=== PATIENT | female | born 1995 | race Caucasian/White ===

== ENCOUNTER 2020-01-17 04:33 | Inpatient (IN) | payer BC ==
[2020-01-17] MEDS: LACTATED RINGERS 1,000 ML IV SCH ×3 (05:00→13:58)
[2020-01-17] MEDS ORDERED: CARBOPROST TROMETHAMINE 250 MCG/ML 1 ML AMP IM PRN (05:02)
[2020-01-17] MEDS ORDERED: OXYTOCIN 10 UNIT/ML 1 ML VIAL IM PRN (05:02)
[2020-01-17] MEDS ORDERED: TERBUTALINE 1 MG/ML VIAL SQ PRN (05:02)
[2020-01-17] MEDS ORDERED: LIDOCAINE 0.5% (PF) 5 MG/ML (50 ML SDV) SQ PRN (05:02)
[2020-01-17] MEDS ORDERED: METHYLERGONOVINE 0.2 MG/ML 1 ML AMP IM PRN (05:02)
[2020-01-17] MEDS ORDERED: OXYTOCIN 30 UNITS/500 ML NS 30 UNIT in SALINE 1 500ML.BAG IV SCH (05:15)
[2020-01-17 05:18] LABS: Basophils % (A) 0 %; Eosinophils # (A) 0.1 k/uL (0-0.7); Eosinophils % (A) 1 %; HCT 36.7 % (34.0-46.0); HGB 12.2 gm/dL (11.4-16.0); Lymphocytes % (A) 21 %; MCH 31.6 pg (25.0-35.0); MCHC 33.3 g/dL (31.0-37.0); MCV 94.8 fL (80.0-100.0); Mean Platelet Volume 8.7; Monocytes # (A) 0.6 k/uL (0-1.0); Monocytes % (A) 7 %; Neutrophils # (A) 6.5 k/uL (1.3-7.7); Neutrophils % (A) 68 %; Platelet Count 177 k/uL (150-450); RBC 3.88 m/uL (3.80-5.40); RDW 13.8 % (11.5-15.5); WBC 9.5 k/uL (3.8-10.6)
--- NOTE | 2020-01-17 07:08 | P.HPOB ---
History of Present Illness H&P Date: 01/17/20 Chief Complaint: Leaking of fluid. This patient is a pleasant 24-year-old 1 para 0 female estimated date of confinement 01/26/2020 estimated gestational age 38-5/7 weeks who presents to labor and delivery with complaints of gush of fluid at approximately 3:00 this morning. Patient's care is complicated by a EIF however evaluation by maternal medicine was negative and it resolved by that time. Patient's is otherwise been uncomplicated. She's had onset of contractions since her water has broke. Review of Systems Genitourinary: Reports Menstruation: Reports amenorrhea Past Medical History Past Medical History: No Reported History History of Any Multi-Drug Resistant Organisms: None Reported Past Surgical History: No Surgical Hx Reported Additional Past Surgical History / Comment(s): wisdom teeth removal Past Anesthesia/Blood Transfusion Reactions: No Reported Reaction Past Psychological History: No Psychological Hx Reported Smoking Status: Never smoker Past Alcohol Use History: None Reported Past Drug Use History: None Reported - Past Family History Mother Family Medical History: No Reported History Medications and Allergies Home Medications Medication Instructions Recorded Confirmed Type Pnv No.95/Ferrous Fum/Folic AC 1 each PO DAILY 01/17/20 01/17/20 History [ Multivitamin Tablet] Allergies Allergy/AdvReac Type Severity Reaction Status Date / Time No Known Allergies Allergy Verified 01/17/20 04:38 Exam Vital Signs Temp Pulse Resp BP Pulse Ox 01/17/20 05:02 97.6 F 93 18 136/86 100 01/17/20 04:39 97.6 F 93 18 136/86 100 Intake and Output 01/16/20 01/17/20 01/17/20 22:59 06:59 14:59 Other: # Voids 1 Weight 71.668 kg - OBG Physical Exam Abdomen: bowel sounds normal, no diffuse tenderness, no bruit present, no guarding noted, no hepatomegaly, no splenomegaly, no mass Vulva: both: normal Vagina: normal moisture, no discharge Cervix: no lesion (Cervix is 3 cm 80% effaced and -1 station), no discharge Uterus: enlarged (Fundal height is consistent with dates) Results blood work shows she is O positive, rubella immune, RPR nonreactive, hepatitis B is negative, HIV is nonreactive, ultrasounds have shown normal anatomy. Most recent ultrasound showed growth the 53rd percentile. Group B strep was negative. Glucola was normal. Result Diagrams: 01/17/20 05:04 Assessment and Plan Assessment: This is a pleasant 24-year-old 1 para 0 female 38-5/7 weeks gestation admitted to labor and delivery spontaneous rupture membranes early labor. Plan is augmentation of labor as necessary and anticipate vaginal delivery. (1) 39 weeks gestation of Current Visit: Yes Status: Acute Code(s): Z3A.39 - 39 WEEKS GESTATION OF SNOMED Code(s): 53688744 (2) Spontaneous rupture of amniotic membranes Current Visit: Yes Status: Acute Code(s): JWC9514 - SNOMED Code(s): 272646971
[2020-01-17] MEDS ORDERED: ROPIVACAINE 100 MG, fentaNYL (PF) 200 MCG in SODIUM CHLORIDE 0.9% 76 ML EPIDURAL ONE (09:07)
[2020-01-17] MEDS ORDERED: ZOLPIDEM 5 MG TAB PO PRN (13:40)
[2020-01-17] MEDS ORDERED: WITCH HAZEL 1 EACH MED..PAD TOPICAL PRN (13:40)
[2020-01-17] MEDS ORDERED: BISACODYL 10 MG SUPP RECTAL PRN (13:40)
[2020-01-17] MEDS ORDERED: SIMETHICONE 80 MG CHEWABLE PO PRN (13:40)
[2020-01-17] MEDS ORDERED: diphenhydrAMINE 25 MG CAP PO PRN (13:40)
[2020-01-17] MEDS ORDERED: LANOLIN CREAM 5 GM TUBE TOPICAL PRN (13:40)
[2020-01-17] MEDS ORDERED: BENZOCAINE/MENTHOL SPRAY 1 GM/SPRAY AEROSOL TOPICAL PRN (13:40)
[2020-01-17] MEDS ORDERED: HYDROCORTISONE 2.5% RECTAL CREAM 30 GM TUBE RECTAL PRN (13:40)
[2020-01-17] MEDS ORDERED: diphenhydrAMINE 50 MG/ML 1 ML VIAL IVP PRN (13:40)
[2020-01-17] MEDS: OXYTOCIN 20 UNITS/1000 ML NS 1,000 ML IV SCH ×2 (13:46→13:53)
[2020-01-17] MEDS: SENNOSIDES-DOCUSATE SODIUM 1 EACH TAB PO SCH ×2 (13:58→19:41)
--- NOTE | 2020-01-17 16:54 | P.PROBDLV ---
Vaginal Delivery Note - . Vaginal Delivery Note: Normal spontaneous vaginal delivery viable male Apgars 9 and 9 delivery time was 1245 hrs. Please see dictated H&P for intimate details of this patient's admission. In brief summary this is a pleasant 24-year-old 1 para 0 female 38-5/7 weeks gestation admitted this morning with spontaneous rupture membranes at 3:00. Patient has Pitocin augmentation of labor and does progress normally. She does get an epidural for pain control. Patient pushes the head to the perineum. Posterior perineum is supported we have controlled delivery of infant's head over the intact perineum. Mouth and nares are bulb suctioned. There is a loose nuchal cord. With gentle downward traction we then have deliver the anterior posterior shoulder and rest this 's body. This is a vigorous viable male Apgars are 9 and 9 delivery time was 1245 hrs. After delivery of the infant the infant is laid on the mother's abdomen. After the cord is then pulsating, it is doubly clamped and cut and appears to be trivascular. Placenta is then delivered spontaneously proximally 5 minutes later intact. This time the patient has some uterine atony and the Pitocin was opened up wide. She continues to have atony despite uterine massage, therefore I gave her 0.2 mg of Methergine. With continued massage the at near subsides however she has approximately 1500 mL of blood loss. I did inspect perineum and there is a first-degree right vaginal laceration was repaired with 3-0 Vicryl usual fashion. Excellent reapproximation is noted. There are no other lacerations. Patient was watched closely and she continues to be firm. All counts are correct 3. Besides the atony there are no other complications and infant and mother are stable delivery room.
[2020-01-17] MEDS: IBUPROFEN 600 MG TAB PO PRN ×2 (18:18→23:55)
[2020-01-17] MEDS: ACETAMINOPHEN TAB 325 MG TAB PO PRN (19:41)
[2020-01-18] MEDS: ACETAMINOPHEN TAB 325 MG TAB PO PRN ×2 (03:56→23:51)
[2020-01-18] MEDS: IBUPROFEN 600 MG TAB PO PRN ×3 (05:44→19:35)
[2020-01-18 06:35] LABS: Basophils % (A) 0 %; Eosinophils # (A) 0.1 k/uL (0-0.7); Eosinophils % (A) 1 %; HCT 24.1 % (34.0-46.0); Lymphocytes # (A) 1.8 k/uL (1.0-4.8); Lymphocytes % (A) 13 %; MCH 33.2 pg (25.0-35.0); MCV 97.8 fL (80.0-100.0); Mean Platelet Volume 8.9; Monocytes # (A) 0.6 k/uL (0-1.0); Monocytes % (A) 5 %; Neutrophils # (A) 10.6 k/uL (1.3-7.7); Neutrophils % (A) 80 %; Platelet Count 143 k/uL (150-450); RBC 2.46 m/uL (3.80-5.40); RDW 14.4 % (11.5-15.5); WBC 13.2 k/uL (3.8-10.6)
[2020-01-18 06:42] LABS: HGB 8.2 gm/dL (11.4-16.0)
--- NOTE | 2020-01-18 07:21 | P.PNOBGVD ---
Subjective - Subjective Patient reports: Reports appetite normal, Reports voiding normally, Reports pain well controlled, Reports ambulating normally : doing well Objective - Latest Vital Signs Latest vital signs: Vital Signs Temp Pulse Resp BP Pulse Ox 01/18/20 04:00 97.9 F 89 16 121/76 01/18/20 00:00 98.1 F 98 16 120/79 01/17/20 20:00 97.4 F L 106 H 16 123/83 99 01/17/20 15:47 97.8 F 107 H 16 111/69 99 01/17/20 15:40 112 H 16 121/71 97 01/17/20 15:10 137 H 16 132/88 01/17/20 14:40 129 H 16 123/86 01/17/20 14:10 98 F 142 H 16 138/95 98 01/17/20 13:55 137 H 16 129/86 01/17/20 13:40 128 H 16 123/91 99 01/17/20 13:25 128 H 16 126/84 100 01/17/20 13:10 97.8 F 107 H 16 121/76 100 Intake and Output 01/17/20 01/18/20 01/18/20 22:59 06:59 14:59 Other: # Voids 1 1 - Exam Lungs: bilateral: normal Chest: Normal S1, Normal S2 Extremities: Present: normal Abdomen: Present: normal appearance, soft Uterus: Present: normal, firm - Labs Labs: Abnormal Lab Results - Last 24 Hours (Table) 01/18/20 Range/Units 06:11 WBC 13.2 H (3.8-10.6) k/uL RBC 2.46 L (3.80-5.40) m/uL Hgb 8.2 L D (11.4-16.0) gm/dL Hct 24.1 L (34.0-46.0) % Plt Count 143 L (150-450) k/uL Neutrophils # 10.6 H (1.3-7.7) k/uL Assessment and Plan Assessment: day #1. Patient is resting without complaints. Hemoglobin today is 8.2 which is consistent with her estimated blood loss yesterday secondary to atony. Patient's bleeding is been normal since that time and she did have an episode of lightheadedness yesterday however this has resolved. Patient is started on some iron therapy. Today her uterus is firm nontender and she is having normal lochia. I've asked her to stay another day due to the blood loss and the significant change in her hemoglobin even though she is feeling fairly well. Patient is agreeable to this. Plan today is to continue routine care. (1) 39 weeks gestation of Current Visit: Yes Status: Acute Code(s): Z3A.39 - 39 WEEKS GESTATION OF SNOMED Code(s): 27587092 (2) Spontaneous rupture of amniotic membranes Current Visit: Yes Status: Acute Code(s): CVK8012 - SNOMED Code(s): 108927035
--- NOTE | 2020-01-18 07:26 | P.MSEPDOC ---
Presenting Problems - Arrival Data Date of Arrival on Unit: 01/17/20 Time of Arrival on Unit: 04:40 Mode of Transport: Ambulatory - Complaint OB-Reason for Admission/Chief Complaint: Rule Out SROM Medical History - Information : 1 Para: 0 Term: 0 : 0 Abortions: Spontaneous or Elective: 0 Number of Living Children: 0 - Gestational Age Gestational Age by LUISITO (wks/days): 38 Weeks and 5 Days Review of Systems - Review of Systems Constitutional: No problems Breast: No problems ENT: No problems Cardiovascular: No problems Respiratory: No problems Gastrointestinal: No problems Genitourinary: No problems Musculoskeletal: No problems Neurological: No problems Skin: No problems Vital Signs - Temperature Temperature: 97.9 F Temperature Source: Oral - Pulse Right Pulse Rate: 89 Pulse Assessment Method: Pulse Oximetry - Respirations Respiratory Rate: 16 Oxygen Delivery Method: Room Air - Blood Pressure Right Arm Blood Pressure: 121/76 Blood Pressure Mean: 91 Blood Pressure Source: Automatic Cuff Medical Screen Scoring (Pre) - Cervical Exam Dilation: 1-3 cm = 1 Effacement: More than 50% = 2 Membranes: Ruptured = 3 - Uterine Contractions Frequency: N/A Duration: N/A Intensity: N/A - Maternal Vital Signs Maternal Temperature: N/A Maternal Blood Pressure: N/A Signs of Preeclampsia: N/A Maternal Respirations: N/A - Maternal Trauma Maternal Trauma: N/A - Assessment - Baby A Baseline FHR: 140 Heart Rate - NICHD Category: Category I (Normal) = 0 NST: Reactive Position: N/A Station: N/A - Total Score - Baby A Total Score - Baby A: 6 - Total Score - Baby B Total Score - Baby B: 6 - Total Score - Baby C Total Score - Baby C: 6 - Level of Risk - Baby A Level of Risk - Baby A: Medium (6-9) - Level of Risk - Baby B Level of Risk - Baby B: Medium (6-9) - Level of Risk - Baby C Level of Risk - Baby C: Medium (6-9) Physician Notification (Pre) - Physician Notified Physician Notified Date: 01/17/20 Physician Notified Time: 05:09 New Order Received: Yes (admit) Disposition - Disposition OB Disposition: Admit, LDRP Suite Discharge Date: 01/17/20 Discharge Time: 04:40 I agree with the RN Medical Screening Exam: Yes Risk & Benefit of care provided described in d/c instruction: Yes Diagnosis: ENCOUNTER FOR FULL-TERM UNCOMPLICATED DELIVERY
[2020-01-18] MEDS: SENNOSIDES-DOCUSATE SODIUM 1 EACH TAB PO SCH ×2 (08:23→19:35)
[2020-01-18] MEDS: IRON AG/C/B12/CA/SUC.ACID/STOM 1 EACH TAB PO SCH (08:28)
[2020-01-19] MEDS: IBUPROFEN 600 MG TAB PO PRN (01:29)
--- NOTE | 2020-01-19 06:27 | P.PNOBGVD ---
Subjective - Subjective Patient reports: Reports appetite normal, Reports voiding normally, Reports pain well controlled, Reports ambulating normally : doing well Objective - Latest Vital Signs Latest vital signs: Vital Signs Temp Pulse Resp BP Pulse Ox 01/19/20 00:00 97.7 F 109 H 16 124/85 100 01/18/20 19:47 97.7 F 118 H 16 129/85 100 01/18/20 16:00 98.2 F 109 H 16 132/86 01/18/20 12:00 98.6 F 110 H 16 129/83 01/18/20 08:00 98 F 114 H 16 136/91 01/18/20 07:25 97.9 F 89 16 121/76 Intake and Output 01/18/20 01/18/20 01/19/20 14:59 22:59 06:59 Other: # Voids 1 - Exam Lungs: bilateral: normal Chest: Normal S1, Normal S2 Extremities: Present: normal Abdomen: Present: normal appearance, soft Uterus: Present: normal, firm - Labs Labs: Abnormal Lab Results - Last 24 Hours (Table) 01/18/20 Range/Units 06:11 WBC 13.2 H (3.8-10.6) k/uL RBC 2.46 L (3.80-5.40) m/uL Hgb 8.2 L D (11.4-16.0) gm/dL Hct 24.1 L (34.0-46.0) % Plt Count 143 L (150-450) k/uL Neutrophils # 10.6 H (1.3-7.7) k/uL Assessment and Plan Assessment: day #2. Patient continues to do well without complaints. Vital signs are stable and she is afebrile. Uterus is firm nontender and she is having normal lochia. Patient's felt be stable for discharge home follow up with me in the office to recheck hemoglobin. She'll continue Motrin for discomfort and also instructed on iron therapy. (1) 39 weeks gestation of Current Visit: Yes Status: Acute Code(s): Z3A.39 - 39 WEEKS GESTATION OF SNOMED Code(s): 97912853 (2) Spontaneous rupture of amniotic membranes Current Visit: Yes Status: Acute Code(s): [id number] - SNOMED Code(s): 602555350
--- NOTE | 2020-01-19 06:31 | P.DS ---
Providers Date of admission: 01/17/20 04:46 Expected date of discharge: 01/19/20 Attending physician: Allen Guerrero Primary care physician: Stated None - Discharge Diagnosis(es) (1) 39 weeks gestation of Current Visit: Yes Status: Acute (2) Spontaneous rupture of amniotic membranes Current Visit: Yes Status: Acute Hospital Course: Please see dictated H&P for intimate details of this patient's admission. Brief summary is a pleasant 24-year-old 1 para 0 female 38-5/7 weeks gestation admitted to labor and delivery with spontaneous rupture membranes. Patient was on have a vaginal delivery viable male . Please see dictated delivery note. Deliveries complicated by uterine atony and has estimated blood loss approximately 1500 mL. Hemoglobin on day one was 8.2 patient is feeling very well. For the most part she is asymptomatic but I asked her to stay another day just to continue to observe make her bleeding is okay and she continues to do well. Patient's felt be stable for discharge home follow up with me in the office for check Procedures: Normal vaginal delivery. Patient Condition at Discharge: Good Plan - Discharge Summary New Discharge Prescriptions: New Ibuprofen [Motrin] 600 mg PO Q6HR PRN #40 tab PRN Reason: Mild Pain Or Fever >= 100.5 Iron Ag/C/B12/Ca/Suc.acid/Stom [Multigen] 1 each PO DAILY #30 tab No Action Pnv No.95/Ferrous Fum/Folic AC [ Multivitamin Tablet] 1 each PO DAILY Discharge Medication List Pnv No.95/Ferrous Fum/Folic AC [ Multivitamin Tablet] 1 each PO DAILY 01/17/20 [History] Ibuprofen [Motrin] 600 mg PO Q6HR PRN #40 tab 01/18/20 [Rx] Iron Ag/C/B12/Ca/Suc.acid/Stom [Multigen] 1 each PO DAILY #30 tab 01/18/20 [Rx] Follow up Appointment(s)/Referral(s): Allen Guerrero MD [STAFF PHYSICIAN] - 02/27/20 9:45 am Patient Instructions/Handouts: Vaginal Delivery (DC), Iron Deficiency Anemia (DC) Activity/Diet/Wound Care/Special Instructions: No intercourse or anything per vagina for 6 weeks. Please call if any fever, chills, excessive vaginal bleeding, and/or abdominal pain. Discharge Disposition: HOME SELF-CARE
[2020-01-19] MEDS: IRON AG/C/B12/CA/SUC.ACID/STOM 1 EACH TAB PO SCH (08:47)
[2020-01-19] MEDS: SENNOSIDES-DOCUSATE SODIUM 1 EACH TAB PO SCH (08:47)
[2020-01-19] MEDS: ACETAMINOPHEN TAB 325 MG TAB PO PRN (08:48)
[2020-01-19 09:06] VITALS: BP 147/88; PULSE 121; RESP 18; TEMP 97.5
== END 2020-01-19 11:21 | disposition home or self-care (01) | DRG 806 ==
LOC: FBPOP 04:33 → 4FBP 04:46
PROVIDERS: ADMIT Obstetrics & Gynecology; ATTEND Obstetrics & Gynecology
DX: O69.81X0 Labor and delivery complicated by cord around neck, without compression, not applicable or unspecified (principal); O72.1 Other immediate postpartum hemorrhage; Z37.0 Single live birth; O70.0 First degree perineal laceration during delivery; Z3A.38 38 weeks gestation of pregnancy; Z79.899 Other long term (current) drug therapy
CPT/HCPCS: 59025; 84112; 85025; 86850; 86900; 86901; 99213

== ENCOUNTER 2021-08-26 06:11 | Inpatient (IN) | payer BC ==
--- NOTE | 2021-08-25 07:31 | P.HPOB ---
History of Present Illness H&P Date: 08/25/21 Chief Complaint: Requested induction of labor This patient is a pleasant 26-year-old 2 para 1 female estimated date of confinement 08/30/2021 estimated gestational age 39-3/7 weeks who presents to labor and delivery for requested induction of labor due to maternal discomfort. Patient's care has been uncomplicated. She does have a history of uterine atony after her last delivery but otherwise has had a previous normal vaginal delivery. Review of Systems Genitourinary: Reports Menstruation: Reports amenorrhea Past Medical History Past Medical History: No Reported History History of Any Multi-Drug Resistant Organisms: None Reported Past Surgical History: No Surgical Hx Reported Additional Past Surgical History / Comment(s): wisdom teeth removal Past Anesthesia/Blood Transfusion Reactions: No Reported Reaction Past Psychological History: No Psychological Hx Reported Smoking Status: Never smoker Past Alcohol Use History: None Reported Past Drug Use History: None Reported - Past Family History Mother Family Medical History: No Reported History Medications and Allergies Home Medications Medication Instructions Recorded Confirmed Type Pnv No.95/Ferrous Fum/Folic AC 1 each PO DAILY 01/17/20 01/17/20 History [ Multivitamin Tablet] Ibuprofen [Motrin] 600 mg PO Q6HR PRN #40 tab 01/18/20 Rx Iron Ag/C/B12/Ca/Suc.acid/Stom 1 each PO DAILY #30 tab 01/18/20 Rx [Multigen] Allergies Allergy/AdvReac Type Severity Reaction Status Date / Time No Known Allergies Allergy Verified 01/17/20 04:38 Exam - OBG Physical Exam Abdomen: bowel sounds normal, no diffuse tenderness, no bruit present, no guarding noted, no hepatomegaly, no splenomegaly, no mass Vulva: both: normal Vagina: normal moisture, no discharge Cervix: no lesion (Cervix is 2-3 cm dilated and soft and -2 station.), no discharge Uterus: enlarged (Fundal height 37 cm) Results blood work shows she is oh positive, rubella immune, RPR nonreactive, hepatitis B negative, HIV nonreactive, Glucola was normal, group B strep was negative, ultrasounds have shown normal growth and anatomy. Assessment and Plan Assessment: This is a pleasant 26-year-old 2 para 1 female 39-3/7 weeks gestation who is admitted to labor and delivery for requested induction of labor. Plan is induction of labor and anticipate vaginal delivery. (1) Elective induction of labor planned Status: Acute Code(s): [id number] - SNOMED Code(s): 709349382 (2) 39 weeks gestation of Status: Acute Code(s): Z3A.39 - 39 WEEKS GESTATION OF SNOMED Code(s): 39628061
[2021-08-26] MEDS ORDERED: OXYTOCIN 30 UNITS/500 ML NS 30 UNIT in SALINE 1 500ML.BAG IV SCH ×2 (06:22→10:56)
[2021-08-26] MEDS ORDERED: CARBOPROST TROMETHAMINE 250 MCG/ML 1 ML AMP IM PRN (06:22)
[2021-08-26] MEDS ORDERED: OXYTOCIN 10 UNIT/ML 1 ML VIAL IM PRN (06:22)
[2021-08-26] MEDS ORDERED: TERBUTALINE 1 MG/ML VIAL SQ PRN (06:22)
[2021-08-26] MEDS ORDERED: LIDOCAINE 1% (PF) 10 MG/ML (30 ML SDV) SQ PRN (06:22)
[2021-08-26] MEDS ORDERED: METHYLERGONOVINE 0.2 MG/ML 1 ML AMP IM PRN (06:22)
[2021-08-26] MEDS: LACTATED RINGERS 1,000 ML IV SCH ×2 (06:34→08:55)
[2021-08-26 06:57] LABS: Basophils % (A) 0 %; Eosinophils # (A) 0.1 k/uL (0-0.7); Eosinophils % (A) 1 %; HCT 37.5 % (34.0-46.0); HGB 13.1 gm/dL (11.4-16.0); Lymphocytes # (A) 2.4 k/uL (1.0-4.8); Lymphocytes % (A) 23 %; MCH 33.2 pg (25.0-35.0); MCHC 34.9 g/dL (31.0-37.0); MCV 95.2 fL (80.0-100.0); Mean Platelet Volume 8.1; Monocytes # (A) 0.6 k/uL (0-1.0); Monocytes % (A) 6 %; Neutrophils # (A) 7.1 k/uL (1.3-7.7); Neutrophils % (A) 69 %; Platelet Count 198 k/uL (150-450); RBC 3.94 m/uL (3.80-5.40); RDW 13.3 % (11.5-15.5); WBC 10.2 k/uL (3.8-10.6)
[2021-08-26] MEDS ORDERED: BUTORPHANOL 1 MG/ML 1 ML VIAL IV PRN (07:24)
[2021-08-26] MEDS ORDERED: ROPIVACAINE 100 MG, fentaNYL (PF). 200 MCG in SODIUM CHLORIDE 0.9% 76 ML EPIDURAL ONE (09:43)
[2021-08-26] MEDS ORDERED: ZOLPIDEM 5 MG TAB PO PRN (10:56)
[2021-08-26] MEDS ORDERED: diphenhydrAMINE 50 MG/ML 1 ML VIAL IVP PRN (10:56)
[2021-08-26] MEDS ORDERED: LANOLIN CREAM 5 GM TUBE TOPICAL PRN (10:56)
[2021-08-26] MEDS ORDERED: bisacodyL 10 MG SUPP RECTAL PRN (10:56)
[2021-08-26] MEDS ORDERED: SIMETHICONE 80 MG CHEWABLE PO PRN (10:56)
[2021-08-26] MEDS ORDERED: ACETAMINOPHEN TAB 325 MG TAB PO PRN (10:56)
[2021-08-26] MEDS ORDERED: BENZOCAINE/MENTHOL SPRAY 1 GM/SPRAY AEROSOL TOPICAL PRN (10:56)
[2021-08-26] MEDS ORDERED: diphenhydrAMINE 25 MG CAP PO PRN (10:56)
[2021-08-26] MEDS ORDERED: HYDROCORTISONE 2.5% RECTAL CREAM 30 GM TUBE RECTAL PRN (10:56)
[2021-08-26] MEDS: SENNOSIDES-DOCUSATE SODIUM 1 EACH TAB PO SCH ×2 (11:49→20:16)
--- NOTE | 2021-08-26 12:42 | P.PROBDLV ---
Vaginal Delivery Note - . Vaginal Delivery Note: Normal vaginal delivery viable male infant Apgars 8 and 9 delivery time was 1049 hrs. Please see dictated H&P for intimate details of this patient's admission. Brief summary this is a pleasant 26-year-old 2 para 1 female 39-3/7 weeks gestation who is admitted to labor and delivery for requested induction of labor. On admission she is 2-3 cm dilated is artificial rupture membranes for clear fluid. Patient's labor is induced with Pitocin per protocol. She progresses and does request an epidural for pain control and is given with good relief. Patient gets to complete pushes the head to the perineum. Posterior perineum is supported we have controlled delivery of 's head over the intact perineum. Mouth and nares are bulb suctioned. 's head is left occiput anterior presentation. Nuchal cord which is easily reduced. With gentle downward traction we have delivery the anterior and posterior shoulder and rest this 's body. Is a vigorous viable male infant Apgars are 8 and 9 delivery time was 1049 hrs. Infant has spontaneous respiration and good cry and grossly appears normal. After delivery of the infant the is laid on the mother's abdomen and the cord is doubly clamped and cut after it is done pulsating. The placenta is then spontaneously delivered intact. Due to the patient's history of atony she's immediately given IV Pitocin and one dose of Methergine prophylactically. Uterus firms up well the bleeding appears to be normal. No lacerations are noted over repair is done. All counts correct 3. Infant and mother stable delivery room.
[2021-08-27] MEDS: IBUPROFEN 600 MG TAB PO PRN ×2 (00:20→07:49)
[2021-08-27 05:01] VITALS: PULSE 57
--- NOTE | 2021-08-27 06:10 | P.PNOBGVD ---
Subjective - Subjective Patient reports: Reports appetite normal, Reports voiding normally, Reports pain well controlled, Reports ambulating normally : doing well Objective - Latest Vital Signs Latest vital signs: Vital Signs Temp Pulse Resp BP BP Pulse Ox 08/27/21 04:00 97.8 F 57 L 14 113/77 98 08/27/21 00:00 97.4 F L 69 16 127/81 98 08/26/21 20:00 70 14 135/88 99 08/26/21 17:00 97.6 F 63 16 128/85 08/26/21 13:00 98.8 F 72 18 121/80 08/26/21 12:30 98.7 F 68 18 135/78 08/26/21 12:00 98.3 F 65 18 137/71 08/26/21 11:45 98.0 F 64 18 134/82 08/26/21 11:30 77 131/76 08/26/21 11:15 97.2 F L 71 18 134/72 08/26/21 11:00 97.1 F L 88 18 118/66 08/26/21 06:20 96.4 F L 125 H 16 130/87 Intake and Output 08/26/21 08/26/21 08/27/21 14:59 22:59 06:59 Intake Total 8.233 Output Total 200 Balance -191.767 Intake: Intake, IV Titration 8.233 Amount Oxytocin 30 Units/500 ml 8.233 Ns 30 unit In Saline 1 500ml.bag @ Per Protocol IV .Q0M NORM Rx#:[id number] Output: Estimated Blood Loss 200 Other: # Voids 1 - Exam Lungs: bilateral: normal Chest: Normal S1, Normal S2 Extremities: Present: normal Abdomen: Present: normal appearance, soft Uterus: Present: normal, firm Assessment and Plan Assessment: day #1. Patient is resting without complaints. Vital signs are stable she is afebrile. Uterus is firm nontender and she is having normal lochia. Patient desires to go home today. My impression this is a normal course. Plan is to continue routine care discharge home later today (1) Elective induction of labor planned Current Visit: No Status: Acute Code(s): [id number] - SNOMED Code(s): 281400289 (2) 39 weeks gestation of Current Visit: No Status: Acute Code(s): Z3A.39 - 39 WEEKS GESTATION OF SNOMED Code(s): 67101282
--- NOTE | 2021-08-27 06:13 | P.DS ---
Providers Date of admission: 08/26/21 06:11 Expected date of discharge: 08/27/21 Attending physician: Allen Guerreor Primary care physician: Stated None - Discharge Diagnosis(es) (1) Elective induction of labor planned Current Visit: No Status: Acute (2) 39 weeks gestation of Current Visit: No Status: Acute Hospital Course: Please see dictated H&P for intimate details of this patient's admission. Brief summary is a pleasant 26-year-old 2 para 1 female 39-3/7 weeks gestation admitted to labor and delivery for requested induction of labor. Patient goes on to have a vaginal delivery of viable male . Please see dictated delivery note. day #1 patient is without complaints wishes to go home. Patient's felt be stable for discharge home follow up me in 6 weeks Procedures: Induction of labor and normal vaginal delivery Patient Condition at Discharge: Good Plan - Discharge Summary New Discharge Prescriptions: New Ibuprofen [Motrin] 600 mg PO Q6HR PRN #30 tab PRN Reason: Pain No Action Pnv No.95/Ferrous Fum/Folic AC [ Multivitamin Tablet] 1 each PO DAILY Discharge Medication List Pnv No.95/Ferrous Fum/Folic AC [ Multivitamin Tablet] 1 each PO DAILY 01/17/20 [History] Ibuprofen [Motrin] 600 mg PO Q6HR PRN #30 tab 08/27/21 [Rx] Follow up Appointment(s)/Referral(s): Allen Guerrero MD [STAFF PHYSICIAN] - 10/04/21 2:15 pm Patient Instructions/Handouts: Vaginal Delivery (DC) Activity/Diet/Wound Care/Special Instructions: No intercourse or anything per vagina for 6 weeks. Please call if any fever, chills, excessive vaginal bleeding, and/or abdominal pain Discharge Disposition: HOME SELF-CARE
[2021-08-27] MEDS: SENNOSIDES-DOCUSATE SODIUM 1 EACH TAB PO SCH (07:48)
[2021-08-27 08:48] VITALS: BP 122/83; RESP 16; TEMP 97.3
== END 2021-08-27 12:30 | disposition home or self-care (01) | DRG 807 ==
LOC: 4FBP 06:11
PROVIDERS: ADMIT Obstetrics & Gynecology; ATTEND Obstetrics & Gynecology
PROC: 00HU33Z Insertion of Infusion Device into Spinal Canal, Percutaneous Approach (ICD-10-PCS; principal; 2021-08-26)
PROC: 3E0R3NZ Introduction of Analgesics, Hypnotics, Sedatives into Spinal Canal, Percutaneous Approach (ICD-10-PCS; principal; 2021-08-26)
PROC: 10E0XZZ Delivery of Products of Conception, External Approach (ICD-10-PCS; principal; 2021-08-26)
PROC: 3E033VJ Introduction of Other Hormone into Peripheral Vein, Percutaneous Approach (ICD-10-PCS; principal; 2021-08-26)
PROC: 10907ZC Drainage of Amniotic Fluid, Therapeutic from Products of Conception, Via Natural or Artificial Opening (ICD-10-PCS; principal; 2021-08-26)
DX: O69.81X0 Labor and delivery complicated by cord around neck, without compression, not applicable or unspecified (principal); Z37.0 Single live birth; Z3A.39 39 weeks gestation of pregnancy
CPT/HCPCS: 85025; 86850; 86900; 86901

== ENCOUNTER 2023-08-28 05:49 | Inpatient (IN) | payer BC ==
[2023-08-28] MEDS ORDERED: LIDOCAINE 0.5% (PF) 5 MG/ML (50 ML SDV) SQ PRN (06:02)
[2023-08-28] MEDS ORDERED: OXYTOCIN 10 UNIT/ML 1 ML VIAL IM PRN (06:02)
[2023-08-28] MEDS ORDERED: miSOPROStoL 200 MCG TAB PO PRN (06:02)
[2023-08-28] MEDS ORDERED: CARBOPROST TROMETHAMINE 250 MCG/ML 1 ML AMP IM PRN (06:02)
[2023-08-28] MEDS ORDERED: OXYTOCIN 30 UNITS/500 ML NS 30 UNIT in SALINE 1 500ML.BAG IV SCH ×2 (06:02→11:00)
[2023-08-28] MEDS ORDERED: LACTATED RINGERS 1,000 ML IV SCH (06:02)
[2023-08-28] MEDS ORDERED: METHYLERGONOVINE 0.2 MG/ML 1 ML AMP IM PRN (06:02)
[2023-08-28] MEDS ORDERED: TERBUTALINE 1 MG/ML VIAL SQ PRN (06:02)
[2023-08-28] MEDS ORDERED: TRANEXAMIC 1,000 MG/100ML-NACL 1,000 MG in EMPTY BAG 1 BAG IV PRN (06:02)
[2023-08-28 06:19] LABS: Basophils % (A) 0 %; Eosinophils # (A) 0.1 k/uL (0-0.7); Eosinophils % (A) 1 %; HCT 36.2 % (34.0-46.0); HGB 12.5 gm/dL (11.4-16.0); Lymphocytes # (A) 2.3 k/uL (1.0-4.8); Lymphocytes % (A) 27 %; MCH 31.9 pg (25.0-35.0); MCHC 34.5 g/dL (31.0-37.0); MCV 92.4 fL (80.0-100.0); Mean Platelet Volume 8.1; Monocytes # (A) 0.4 k/uL (0-1.0); Monocytes % (A) 4 %; Neutrophils # (A) 5.5 k/uL (1.3-7.7); Neutrophils % (A) 65 %; Platelet Count 167 k/uL (150-450); RBC 3.92 m/uL (3.80-5.40); WBC 8.5 k/uL (3.8-10.6)
--- NOTE | 2023-08-28 06:32 | P.HPOB ---
History of Present Illness H&P Date: 08/28/23 Chief Complaint: Requested induction of labor This patient is a pleasant 28-year-old 3 para 2 female estimated date of confinement 09/01/2023 estimated gestational age 39-3/7 weeks who presents to labor and delivery for requested induction of labor. Patient's care was uncomplicated with the exception of an EIF that was found at 20 weeks however this resolved. Patient's been uncomfortable requested induction at this time. Review of Systems Genitourinary: Reports Menstruation: Reports amenorrhea Past Medical History Past Medical History: No Reported History Additional Past Medical History / Comment(s): Patient had 2 spontaneous vaginal deliveries. First she had atony and hemorrhage. History of Any Multi-Drug Resistant Organisms: None Reported Past Surgical History: No Surgical Hx Reported Additional Past Surgical History / Comment(s): wisdom teeth removal Past Anesthesia/Blood Transfusion Reactions: No Reported Reaction Past Psychological History: No Psychological Hx Reported Smoking Status: Never smoker Past Alcohol Use History: None Reported Past Drug Use History: None Reported - Past Family History Mother Family Medical History: Hypertension Medications and Allergies Home Medications Medication Instructions Recorded Confirmed Type Pnv No.95/Ferrous Fum/Folic AC 1 each PO DAILY 01/17/20 08/28/23 History [ Multivitamin Tablet] Allergies Allergy/AdvReac Type Severity Reaction Status Date / Time No Known Allergies Allergy Verified 08/28/23 06:01 Exam Vital Signs Temp Pulse 08/28/23 06:03 96.5 F L 118 H Intake and Output 08/27/23 08/27/23 08/28/23 14:59 22:59 06:59 Other: Weight 68.492 kg - OBG Physical Exam Abdomen: bowel sounds normal, no diffuse tenderness, no bruit present, no guarding noted, no hepatomegaly, no splenomegaly, no mass Vulva: both: normal Vagina: normal moisture, no discharge Cervix: no lesion (Cervix is 2 cm dilated 50% effaced -2 station), no discharge Uterus: enlarged Results blood work shows she is O positive, rubella immune, RPR nonreactive, hepatitis B and C were negative, HIV is nonreactive, Glucola was normal, group B strep was negative, ultrasounds at 35 week showed estimated weight at 5 lbs. 4 oz. Result Diagrams: 08/28/23 06:10 Assessment and Plan Assessment: This is a pleasant 28-year-old 3 para 2 female 39-3/7 weeks who presents to labor and delivery for requested induction of labor. Plan is induction of labor with Pitocin per protocol and anticipate vaginal delivery. Patient does have a history of hemorrhage secondary to atony with her first and therefore will prophylactically treat with Methergine after delivery. (1) 39 weeks gestation of Current Visit: No Status: Acute Code(s): Z3A.39 - 39 WEEKS GESTATION OF SNOMED Code(s): 72960201 (2) Elective induction of labor planned Current Visit: No Status: Acute Code(s): ZYV1580 - SNOMED Code(s): 918657973
[2023-08-28] MEDS ORDERED: fentaNYL (PF) 50 MCG/ML 5 ML AMP ONE (09:22)
[2023-08-28] MEDS ORDERED: SODIUM CHLORIDE 0.9% 250 ML BAG ONE (09:22)
[2023-08-28] MEDS ORDERED: ROPIVACAINE 5 MG/ML 30 ML VIAL ONE (09:22)
[2023-08-28] MEDS ORDERED: IBUPROFEN 600 MG TAB PO PRN (11:00)
[2023-08-28] MEDS ORDERED: bisacodyL 10 MG SUPP RECTAL PRN (11:00)
[2023-08-28] MEDS ORDERED: SIMETHICONE 80 MG CHEWABLE PO PRN (11:00)
[2023-08-28] MEDS ORDERED: ZOLPIDEM 5 MG TAB PO PRN (11:00)
[2023-08-28] MEDS ORDERED: BENZOCAINE/MENTHOL SPRAY 1 GM/SPRAY AEROSOL TOPICAL PRN (11:00)
[2023-08-28] MEDS ORDERED: diphenhydrAMINE 50 MG/ML 1 ML VIAL IVP PRN (11:00)
[2023-08-28] MEDS ORDERED: HYDROCORTISONE 2.5% RECTAL CREAM 30 GM TUBE RECTAL PRN (11:00)
[2023-08-28] MEDS ORDERED: diphenhydrAMINE 25 MG CAP PO PRN (11:00)
[2023-08-28] MEDS ORDERED: ACETAMINOPHEN TAB 325 MG TAB PO PRN (11:00)
[2023-08-28] MEDS ORDERED: LANOLIN CREAM 5 GM TUBE TOPICAL PRN (11:00)
--- NOTE | 2023-08-28 12:48 | P.PROBDLV ---
Vaginal Delivery Note - . Vaginal Delivery Note: Normal vaginal delivery viable female Apgars 8 and 9 delivery time is 1032 hrs. Please see dictated H&P for intimate details of this patient's admission. Brief summary is a pleasant 28-year-old 3 para 2 female 39-3/7 weeks who presents to labor and delivery for requested induction of labor. I admission patient is 2 cm dilated has artificial rupture membranes for clear fluid. Labor is induced with Pitocin per protocol. Patient progresses quickly and does get an epidural for pain control. Patient does get complete pushes just a couple times and pushes the head to the perineum. Posterior perineum is supported and we have controlled delivery of the infant's head over the intact perineum. is straight occiput anterior presentation. There is a tight nuchal cord which is doubly clamped and then cut and reduced. With gentle downw reanna traction we then have deliver the anterior and posterior shoulder and rest this 's body. This is a vigorous viable female Apgars are 8 and 9 delivery time is 1032 hrs. After delivery of the the, the infant is laid on the mother's abdomen. The placenta is spontaneously delivered intact. Due to the patient's history of hemorrhage, she's immediately given a dose of Methergine and uterine massage. This does work quite well. Estimated blood loss is about 150 mL. There are no lacerations and no repair. and mother are stable delivery room. All counts are correct 3. There are no complications.
[2023-08-28] MEDS: SENNOSIDES-DOCUSATE SODIUM 1 EACH TAB PO SCH ×2 (14:12→20:01)
[2023-08-29 00:34] VITALS: TEMP 97.8
--- NOTE | 2023-08-29 06:40 | P.PNOBGVD ---
Subjective - Subjective Patient reports: Reports appetite normal, Reports voiding normally, Reports pain well controlled, Reports ambulating normally : doing well Objective - Latest Vital Signs Latest vital signs: Vital Signs Temp Pulse Resp BP Pulse Ox 08/28/23 23:55 97.8 F 98 18 106/72 99 08/28/23 20:17 98.2 F 68 18 124/84 97 08/28/23 15:01 97.8 F 72 16 126/77 97 08/28/23 13:01 68 16 133/77 08/28/23 12:46 63 16 134/87 08/28/23 12:31 60 16 132/83 08/28/23 12:16 62 16 136/87 08/28/23 12:01 71 16 134/85 08/28/23 11:46 69 16 129/82 08/28/23 11:31 71 16 126/85 08/28/23 11:16 97.6 F 70 16 120/77 08/28/23 11:01 85 16 120/78 Intake and Output 08/28/23 08/28/23 08/29/23 14:59 22:59 06:59 Output Total 150 Balance -150 Output: Output, Quantitative 150 Blood Loss Other: # Voids 1 1 - Exam Lungs: bilateral: normal Chest: Normal S1, Normal S2 Extremities: Present: normal Abdomen: Present: normal appearance, soft Uterus: Present: normal, firm Assessment and Plan Assessment: day #1. Patient is resting without complaints and wishes to go home. Vital signs are stable she is afebrile. Uterus is firm nontender and she is having normal lochia. CBC is pending at time of this dictation. My impression this is a normal course. Plan is to check a CBC, continue routine care, discharge home later today. (1) 39 weeks gestation of Current Visit: No Status: Acute Code(s): Z3A.39 - 39 WEEKS GESTATION OF SNOMED Code(s): 65282772 (2) Elective induction of labor planned Current Visit: No Status: Acute Code(s): [id number] - SNOMED Code(s): 527258859
--- NOTE | 2023-08-29 06:44 | P.DS ---
Providers Date of admission: 08/28/23 05:49 Expected date of discharge: 08/29/23 Attending physician: Allen Guerrero Primary care physician: Stated None - Discharge Diagnosis(es) (1) 39 weeks gestation of Current Visit: No Status: Acute (2) Elective induction of labor planned Current Visit: No Status: Acute Hospital Course: Please see dictated H&P and delivery note on this patient's admission. In brief summary this is a pleasant 28-year-old 3 para 2 female 39-3/7 weeks is admitted to labor and delivery for requested induction of labor. Patient quickly goes on to have a vaginal delivery viable female . Please see dictated delivery note. day #1 patient's doing well wishes to go home. Patient's felt to be stable for discharge home follow up with me in 6 weeks. Procedures: Induction of labor and normal vaginal delivery Patient Condition at Discharge: Good Plan - Discharge Summary New Discharge Prescriptions: New Ibuprofen [Motrin] 600 mg PO Q6HR PRN #30 tab PRN Reason: Mild Pain (Scale 1 To 3) No Action Pnv No.95/Ferrous Fum/Folic AC [ Multivitamin Tablet] 1 each PO DAILY Discharge Medication List Pnv No.95/Ferrous Fum/Folic AC [ Multivitamin Tablet] 1 each PO DAILY 01/17/20 [History] Ibuprofen [Motrin] 600 mg PO Q6HR PRN #30 tab 08/29/23 [Rx] Follow up Appointment(s)/Referral(s): Allen Guerrero MD [STAFF PHYSICIAN] - 6 Weeks Patient Instructions/Handouts: Vaginal Delivery (DC) Activity/Diet/Wound Care/Special Instructions: No intercourse or anything per vagina for 6 weeks. Please call if any fever, chills, excessive vaginal bleeding, and/or abdominal pain Discharge Disposition: HOME SELF-CARE
[2023-08-29 07:21] LABS: Basophils % (A) 0 %; Eosinophils # (A) 0.1 k/uL (0-0.7); Eosinophils % (A) 1 %; HCT 32.8 % (34.0-46.0); HGB 11.6 gm/dL (11.4-16.0); Lymphocytes # (A) 2.1 k/uL (1.0-4.8); Lymphocytes % (A) 18 %; MCH 32.7 pg (25.0-35.0); MCHC 35.2 g/dL (31.0-37.0); MCV 92.8 fL (80.0-100.0); Mean Platelet Volume 8.7; Monocytes # (A) 0.5 k/uL (0-1.0); Monocytes % (A) 4 %; Neutrophils # (A) 8.8 k/uL (1.3-7.7); Neutrophils % (A) 75 %; Platelet Count 158 k/uL (150-450); RBC 3.54 m/uL (3.80-5.40); WBC 11.7 k/uL (3.8-10.6)
[2023-08-29] MEDS: SENNOSIDES-DOCUSATE SODIUM 1 EACH TAB PO SCH (08:31)
[2023-08-29 08:36] VITALS: BP 116/76; PULSE 67; RESP 16
== END 2023-08-29 11:05 | disposition home or self-care (01) | DRG 807 ==
LOC: 4FBP 05:49
PROVIDERS: ADMIT Obstetrics & Gynecology; ATTEND Obstetrics & Gynecology
PROC: 3E033VJ Introduction of Other Hormone into Peripheral Vein, Percutaneous Approach (ICD-10-PCS; principal; 2023-08-28)
PROC: 10907ZC Drainage of Amniotic Fluid, Therapeutic from Products of Conception, Via Natural or Artificial Opening (ICD-10-PCS; principal; 2023-08-28)
PROC: 10E0XZZ Delivery of Products of Conception, External Approach (ICD-10-PCS; principal; 2023-08-28)
DX: O69.1XX0 Labor and delivery complicated by cord around neck, with compression, not applicable or unspecified (principal); O62.3 Precipitate labor; Z87.59 Personal history of other complications of pregnancy, childbirth and the puerperium; Z28.310 Unvaccinated for COVID-19; Z3A.39 39 weeks gestation of pregnancy; Z37.0 Single live birth
CPT/HCPCS: 85025; 86850; 86900; 86901